=== PATIENT | female | born 1990 | race Two or more races ===

== ENCOUNTER → 2021-08-16 15:16 | Emergency (ER) | payer MEDICAID ==
[~2021-08-16] VITALS: Ht 165.1 cm; Wt 43.7 kg
[~2021-08-16 15:16] MED LIST: ACETAMINOPHEN 325 MG TAB PO ONE
[2021-08-16 18:58] VITALS: BP 120/71
== END | disposition home or self-care (01) ==
LOC: ER 15:16
DX: S00.81XA Abrasion of other part of head, initial encounter (principal); S09.8XXA Other specified injuries of head, initial encounter; F41.9 Anxiety disorder, unspecified; F32.9 Major depressive disorder, single episode, unspecified; Y08.89XA Assault by other specified means, initial encounter; Y93.89 Activity, other specified; Y92.89 Other specified places as the place of occurrence of the external cause; Y99.8 Other external cause status
CPT/HCPCS: 70450